=== PATIENT | female | born 1930 | race Caucasian/White ===

== ENCOUNTER 2016-09-27 10:27 | Outpatient (CLI) | payer MEDICARE, OTHER ==
[2015-04-26 11:31] VITALS: BP 129/69
== END 2016-09-27 10:30 ==
LOC: LAB 10:27
PROVIDERS: ATTEND Family Medicine
DX: Z51.81 Encounter for therapeutic drug level monitoring (principal); Z79.01 Long term (current) use of anticoagulants
CPT/HCPCS: 36415; 85610

== ENCOUNTER 2016-11-01 10:06 | Outpatient (CLI) | payer MEDICARE, OTHER ==
[2015-04-26 11:31] VITALS: BP 129/69
== END 2016-11-01 10:07 ==
LOC: LAB 10:06
PROVIDERS: ATTEND Family Medicine
DX: Z51.81 Encounter for therapeutic drug level monitoring (principal)
CPT/HCPCS: 36415; 85610

== ENCOUNTER 2016-11-22 10:25 | Outpatient (CLI) | payer MEDICARE, OTHER ==
[2015-04-26 11:31] VITALS: BP 129/69
== END 2016-11-22 10:26 ==
LOC: LAB 10:25
PROVIDERS: ATTEND Family Medicine
DX: Z51.81 Encounter for therapeutic drug level monitoring (principal); Z79.01 Long term (current) use of anticoagulants; I48.91 Unspecified atrial fibrillation
CPT/HCPCS: 36415; 85610

== ENCOUNTER 2016-11-28 15:47 | Outpatient (CLI) | payer MEDICARE, OTHER ==
[2015-04-26 11:31] VITALS: BP 129/69
[2016-11-28 16:01] LABS: BASOPHILS % 0.3 (0.0-1.5); EOSINOPHILS % 2.6 % (0.0-6.8); LYMPHOCYTES # 2.1 # k/uL (0.6-4.0); MONOCYTES # 0.4 # k/uL (0.0-0.9); MONOCYTES % 5.9 % (0.0-11.0); NEUTROPHILS # 3.5 # k/uL (1.4-7.7)
[2016-11-28 16:49] LABS: eGFR (African) > 60; eGFR (Non-African) > 60
== END 2016-11-28 15:50 ==
LOC: LAB 15:47
PROVIDERS: ATTEND Physician Assistant
DX: R42 Dizziness and giddiness (principal); D50.9 Iron deficiency anemia, unspecified
CPT/HCPCS: 36415; 80053; 82607; 83540; 85025

== ENCOUNTER 2017-01-01 09:06 | Outpatient (CLI) | payer MEDICARE, OTHER ==
[2015-04-26 11:31] VITALS: BP 129/69
== END 2017-01-01 09:07 ==
LOC: LAB 09:06
PROVIDERS: ATTEND Family Medicine
DX: E53.8 Deficiency of other specified B group vitamins (principal)
CPT/HCPCS: 82607; 85610

== ENCOUNTER 2017-02-07 10:24 | Outpatient (CLI) | payer MEDICARE, OTHER ==
[2015-04-26 11:31] VITALS: BP 129/69
== END 2017-02-07 10:25 ==
LOC: LAB 10:24
PROVIDERS: ATTEND Family Medicine
DX: Z51.81 Encounter for therapeutic drug level monitoring (principal)
CPT/HCPCS: 36415; 85610

== ENCOUNTER 2017-03-07 13:24 | Outpatient (CLI) | payer MEDICARE, OTHER ==
[2015-04-26 11:31] VITALS: BP 129/69
== END 2017-03-07 13:25 ==
LOC: LAB 13:24
PROVIDERS: ATTEND Family Medicine
DX: Z79.899 Other long term (current) drug therapy (principal)
CPT/HCPCS: 36415; 85610

== ENCOUNTER 2017-03-20 10:19 | Outpatient (CLI) | payer MEDICARE, OTHER ==
[2015-04-26 11:31] VITALS: BP 129/69
== END 2017-03-20 10:20 ==
LOC: LAB 10:19
PROVIDERS: ATTEND Family Medicine
DX: Z79.01 Long term (current) use of anticoagulants (principal)
CPT/HCPCS: 36415; 85610

== ENCOUNTER 2017-04-17 10:19 | Outpatient (CLI) | payer MEDICARE, OTHER ==
[2015-04-26 11:31] VITALS: BP 129/69
== END 2017-04-17 10:20 ==
LOC: LAB 10:19
PROVIDERS: ATTEND Family Medicine
DX: Z79.01 Long term (current) use of anticoagulants (principal)
CPT/HCPCS: 36415; 85610

== ENCOUNTER 2017-05-15 10:08 | Outpatient (CLI) | payer MEDICARE, OTHER ==
[2015-04-26 11:31] VITALS: BP 129/69
== END 2017-05-15 10:10 ==
LOC: LAB 10:08
PROVIDERS: ATTEND Family Medicine
DX: Z79.01 Long term (current) use of anticoagulants (principal)
CPT/HCPCS: 36415; 85610

== ENCOUNTER 2017-05-29 10:06 | Outpatient (CLI) | payer MEDICARE, OTHER ==
[2015-04-26 11:31] VITALS: BP 129/69
== END 2017-05-29 10:07 ==
LOC: LAB 10:06
PROVIDERS: ATTEND Family Medicine
DX: Z79.01 Long term (current) use of anticoagulants (principal)
CPT/HCPCS: 36415; 85610

== ENCOUNTER 2017-07-05 10:20 | Outpatient (CLI) | payer MEDICARE, OTHER ==
[2015-04-26 11:31] VITALS: BP 129/69
[2017-07-05 11:18] LABS: eGFR (African) > 60; eGFR (Non-African) > 60
== END 2017-07-05 10:21 ==
LOC: LAB 10:20
PROVIDERS: ATTEND Family Medicine
DX: E78.2 Mixed hyperlipidemia (principal); E53.8 Deficiency of other specified B group vitamins; Z51.81 Encounter for therapeutic drug level monitoring
CPT/HCPCS: 36415; 80053; 80061; 82607; 85610

== ENCOUNTER 2017-07-19 10:33 | Outpatient (CLI) | payer MEDICARE, OTHER ==
[2015-04-26 11:31] VITALS: BP 129/69
== END 2017-07-19 10:34 ==
LOC: LAB 10:33
PROVIDERS: ATTEND Family Medicine
DX: Z51.81 Encounter for therapeutic drug level monitoring (principal)
CPT/HCPCS: 36415; 85610

== ENCOUNTER 2017-07-30 10:11 | Outpatient (CLI) | payer MEDICARE, OTHER ==
[2015-04-26 11:31] VITALS: BP 129/69
== END 2017-07-30 10:12 ==
LOC: LAB 10:11
PROVIDERS: ATTEND Family Medicine
DX: Z51.81 Encounter for therapeutic drug level monitoring (principal)
CPT/HCPCS: 36415; 85610

== ENCOUNTER 2017-08-21 10:10 | Outpatient (CLI) | payer MEDICARE, OTHER ==
[2015-04-26 11:31] VITALS: BP 129/69
== END 2017-08-21 12:55 ==
LOC: LAB 10:10
PROVIDERS: ATTEND Family Medicine
DX: Z51.81 Encounter for therapeutic drug level monitoring (principal)
CPT/HCPCS: 36415; 85610

== ENCOUNTER 2017-09-19 10:31 | Outpatient (CLI) | payer MEDICARE, OTHER ==
[2015-04-26 11:31] VITALS: BP 129/69
== END 2017-09-19 10:33 ==
LOC: LAB 10:31
PROVIDERS: ATTEND Family Medicine
DX: Z51.81 Encounter for therapeutic drug level monitoring (principal)
CPT/HCPCS: 36415; 85610

== ENCOUNTER 2017-10-25 10:06 | Outpatient (CLI) | payer MEDICARE, OTHER ==
[2015-04-26 11:31] VITALS: BP 129/69
== END 2017-10-25 10:07 ==
LOC: LAB 10:06
PROVIDERS: ATTEND Family Medicine
DX: Z51.81 Encounter for therapeutic drug level monitoring (principal)
CPT/HCPCS: 36415; 85610

== ENCOUNTER 2017-11-21 10:17 | Outpatient (CLI) | payer MEDICARE, OTHER ==
[2015-04-26 11:31] VITALS: BP 129/69
== END 2017-11-21 10:30 ==
LOC: LAB 10:17
PROVIDERS: ATTEND Family Medicine
DX: Z51.81 Encounter for therapeutic drug level monitoring (principal)
CPT/HCPCS: 36415; 85610

== ENCOUNTER 2017-11-28 10:08 | Outpatient (CLI) | payer MEDICARE, OTHER ==
[2015-04-26 11:31] VITALS: BP 129/69
== END 2017-11-28 10:10 ==
LOC: LAB 10:08
PROVIDERS: ATTEND Family Medicine
DX: Z51.81 Encounter for therapeutic drug level monitoring (principal)
CPT/HCPCS: 36415; 85610

== ENCOUNTER 2017-12-05 10:19 | Outpatient (CLI) | payer MEDICARE, OTHER ==
[2015-04-26 11:31] VITALS: BP 129/69
== END 2017-12-05 10:20 ==
LOC: LAB 10:19
PROVIDERS: ATTEND Family Medicine
DX: Z51.81 Encounter for therapeutic drug level monitoring (principal)
CPT/HCPCS: 36415; 85610

== ENCOUNTER 2017-12-12 10:17 | Outpatient (CLI) | payer MEDICARE, OTHER ==
[2015-04-26 11:31] VITALS: BP 129/69
== END 2017-12-12 10:18 ==
LOC: LAB 10:17
PROVIDERS: ATTEND Family Medicine
DX: Z51.81 Encounter for therapeutic drug level monitoring (principal)
CPT/HCPCS: 36415; 85610

== ENCOUNTER 2018-02-11 11:10 | Outpatient (CLI) | payer MEDICARE, OTHER ==
[2015-04-26 11:31] VITALS: BP 129/69
[2018-02-11 11:28] LABS: MEAN CORPUSCULAR HEMOGLOBIN 28.2 pg (28.0-34.0); MEAN CORPUSCULAR VOLUME 96.3 fl (80.0-100.0)
== END 2018-02-11 11:11 ==
LOC: LAB 11:10
PROVIDERS: ATTEND Family Medicine
DX: D50.9 Iron deficiency anemia, unspecified (principal)
CPT/HCPCS: 36415; 85027

== ENCOUNTER 2018-02-18 10:19 | Outpatient (CLI) | payer MEDICARE, OTHER ==
[2015-04-26 11:31] VITALS: BP 129/69
[2018-02-18 10:34] LABS: MEAN CORPUSCULAR HEMOGLOBIN 28.4 pg (28.0-34.0)
== END 2018-02-18 10:20 ==
LOC: LAB 10:19
PROVIDERS: ATTEND Family Medicine
DX: D64.9 Anemia, unspecified (principal)
CPT/HCPCS: 36415; 85027

== ENCOUNTER 2018-02-26 10:39 | Outpatient (CLI) | payer MEDICARE, OTHER ==
[2015-04-26 11:31] VITALS: BP 129/69
[2018-02-26 13:11] LABS: BASOPHILS % 0.7 (0.0-1.5); EOSINOPHILS % 2.2 % (0.0-6.8); MEAN CORPUSCULAR HEMOGLOBIN 29.5 pg (28.0-34.0); MEAN CORPUSCULAR VOLUME 102.2 fl (80.0-100.0); NEUTROPHILS # 3.8 # k/uL (1.4-7.7)
[2018-02-26 19:31] LABS: SERUM IRON 157 ug/dL (37-145)
== END 2018-02-26 10:40 ==
LOC: LAB 10:39
PROVIDERS: ATTEND Family Medicine
DX: D50.9 Iron deficiency anemia, unspecified (principal)
CPT/HCPCS: 36415; 82728; 83540; 83550; 85025

== ENCOUNTER 2018-04-24 10:13 | Outpatient (CLI) | payer MEDICARE, OTHER ==
[2015-04-26 11:31] VITALS: BP 129/69
[2018-04-24 10:33] LABS: MEAN CORPUSCULAR HEMOGLOBIN 29.6 pg (28.0-34.0); MEAN CORPUSCULAR VOLUME 93.9 fl (80.0-100.0)
== END 2018-04-24 10:14 ==
LOC: LAB 10:13
PROVIDERS: ATTEND Family Medicine
DX: D64.9 Anemia, unspecified (principal)
CPT/HCPCS: 36415; 85027

== ENCOUNTER 2018-11-14 09:52 | Outpatient (CLI) | payer MEDICARE, OTHER ==
[2015-04-26 11:31] VITALS: BP 129/69
[2018-11-14 10:50] LABS: MEAN CORPUSCULAR HEMOGLOBIN 29.7 pg (28.0-34.0)
[2018-11-14 11:02] LABS: eGFR (Non-African) 37
--- NOTE | 2018-11-15 04:01 | Diagnostic Imaging Report ---
NIDA MUNROE [facility] [id number] [facility] [address] [id number] Report Submission Date: Nov 14, 2018 11:29:21 AM CHIEF SAFETY OFFICER Patient Study Name: BHAVANA REILLY Date: Nov 14, 2018 10:06:41 AM CHIEF SAFETY OFFICER Modality Type: DX Gender: F Description: L SPINE 2 OR 3 VIEWS : 31 Institution: [facility] Physician: NIDA MUNROE Exam: Lumbar spine. History: Chronic back pain. Primarily on the right side. AP, lateral and L5-S1 spot view the lumbar spine are submitted. No previous studies are available for comparison. 5 functional lumbar vertebra are identified. Diffuse osteopenia is noted. Dextroscoliosis of lumbar spine is noted. The vertebral body heights are adequate maintained. Mild retrolisthesis of T12 on L1 is noted. Disc space narrowing with endplate sclerosis and spurring is seen at all levels. Atherosclerotic plaque is seen in the abdominal aorta. Impression: Diffuse osteopenia. Extra scoliosis. Retrolisthesis of T12 on L1. Multilevel degenerative disc disease. Electronically signed on Nov 14, 2018 11:29:21 AM CHIEF SAFETY OFFICER by: Dylan ALEJANDRA
== END 2018-11-14 10:10 ==
LOC: LAB 09:52
PROVIDERS: ATTEND Family Medicine
DX: G89.29 Other chronic pain (principal); M54.5 Low back pain; E78.2 Mixed hyperlipidemia; D64.9 Anemia, unspecified; M85.88 Other specified disorders of bone density and structure, other site; M41.86 Other forms of scoliosis, lumbar region; M51.36 Other intervertebral disc degeneration, lumbar region
CPT/HCPCS: 36415; 72100; 80053; 80061; 85027

== ENCOUNTER 2019-03-26 13:09 | Outpatient (CLI) | payer MEDICARE, OTHER ==
[2015-04-26 11:31] VITALS: BP 129/69
--- NOTE | 2019-03-28 15:45 | CONSULTATION REPORT ---
DATE OF CONSULTATION: 03/26/2019 CHIEF COMPLAINT: Low back pain with radiation to the left lower extremity into the foot and into the left buttock. HISTORY OF PRESENT ILLNESS: Ms. Tiny Burroughs is an 88-year-old white female referred to me by Dr. Janie Ricketts. The patient has had complaint of pain for many years. She states that her pain has worsened in the past 8-9 weeks. The patient reports to me that she had gotten a nerve block done about 1 month ago and it has changed the character of her pain from referred into the left foot, now only referred into the left buttock area. The patient is not sure what injection she had (apparently it was done in [place], [place]; I believe at a radiology center). We will need to try and get the records regarding this procedure. At this time, the patient describes pain radiating from the lumbar region into the left buttock. It is described as constant, dull and achy. It is aggravated with prolonged sitting. It is improved with lying down. Past treatments have never included any surgery. She has had an injection done about 1 month ago, as mentioned above. The patient has had some physical therapy; she just started it yesterday. Her pain is rated at 7/10 in intensity on an average given day. Her current medications for pain only include [id number] Tylenol at this time. She does have imaging in the chart which reveals an L4-L5 and L5-S1 disc bulge but more significantly has facet arthropathy from the T12 level down through the L5-S1 level. PAST MEDICAL HISTORY: 1. GERD. 2. Hypertension. 3. Atrial fibrillation. 4. History of colon cancer. PAST SURGICAL HISTORY: 1. Sigmoid colon resection. 2. Right total knee replacement. 3. Appendectomy. 4. Cholecystectomy. 5. Hysterectomy. 6. Bladder sling surgery. ALLERGIES: Sulfa Contrast dye MEDICATIONS: As mentioned above. It should also be noted that the patient is also on Eliquis. SOCIAL HISTORY: Negative for tobacco, alcohol or any substance use. FAMILY HISTORY: Noncontributory. REVIEW OF SYSTEMS: The patient states her sleep/wake cycle is intact. She denies shortness of breath, chest pain, nausea, constipation or any urinary problems. She states she has had an 8 pound weight loss from her hypertension medication. She has no skin rashes or any other integument issues. The patient does wear glasses and otherwise has blurred vision. The patient denies any dizziness, headache or memory issues. PHYSICAL EXAMINATION: On exam, the patient is 5 feet 1 inch tall and weighs 132 pounds. The patient is awake and alert x3. Vital signs are stable. Heart is regular in rate and rhythm. Eyes PERRLA. Throat is clear. Trachea midline. Lungs have good excursion. No acute respiratory distress. Abdomen is soft and nontender. Motor strength is 5/5 upper and lower bilaterally. Sensory system is grossly intact. The patient does have minimal lumbosacral tenderness and mild left SI tenderness. The patient is noted to have arthritic changes in the joints of her hands. The patient otherwise has adequate lumbar flexion but does have significant tenderness and limitation with lumbar extension. IMAGING: As mentioned above. DIAGNOSES: 1. Lumbar spondylosis. 2. Lumbar disc displacement. 3. Lumbar spinal stenosis. PLAN AT THIS TIME: 1. We will need to try and get records regarding the patients previously mentioned nerve block 1 month ago. 2. I will start her on some meloxicam, Robaxin and gabapentin at 100 mg q.h.s. 3. We will get the patient set up for a lumbar medial branch block. This will require the patient to hold her Eliquis for a 3 day period of time. We will need to get permission regarding this from Dr. Ricketts. Ms. Burroguhs is a genuinely nice and pleasant woman and hopefully we can help attenuate her complaints of pain. I believe her current issues are more related to her spondylitic findings rather than the discogenic findings. I would again like to thank Dr. Ricketts for referral of this patient to us at this time. I look forward to seeing Ms. Burroughs in 2 weeks time for the above mentioned procedure. Sincerely, Luis Enrique Cardoza M.D. (dictated but not read) computer generated signature MN/pre cc: Janie Ricketts M.D. NOTE: Time spent with this patient today was in excess of 45 minutes. [facility]
== END 2019-03-26 13:35 ==
LOC: OUT 13:09
PROVIDERS: ATTEND Pain Medicine Interventional Pain Medicine
DX: M47.816 Spondylosis without myelopathy or radiculopathy, lumbar region (principal); M51.26 Other intervertebral disc displacement, lumbar region; M48.061 Spinal stenosis, lumbar region without neurogenic claudication
CPT/HCPCS: 99204; G0463

== ENCOUNTER 2019-04-09 12:49 | Outpatient (CLI) | payer MEDICARE, OTHER ==
[2015-04-26 11:31] VITALS: BP 129/69
[~2019-04-09 12:49] MED LIST: 0.9 % SODIUM CHLORIDE PF 10 ML VIAL IJ ONE; Lidocaine 1% 5ml 10 MG/ML VIAL ONE; methylPREDNISolone ACETATE 80 MG/ML VIAL IM ONE
--- NOTE | 2019-04-14 06:04 | Operative Note ---
PROCEDURE: Lumbar Medial Branch Block (bilateral L3-L4, L4-L5 and L5-S1 levels), #1 DATE OF PROCEDURE: 04/09/2019 CHIEF COMPLAINT: Low back pain. HISTORY OF PRESENT ILLNESS: Ms. Burroughs returns following her initial evaluation. At that point, we felt that the lumbar medial branch block would be an appropriate treatment modality for the patients pain complaints consistent with lumbar spondylosis and facet hypertrophy. Ms. Burroughs is accompanied by her son and her granddaughter, Екатерина, who is a nurse here at [facility] in [place], [place]. I have gone through the procedure in great detail with the patient and her family members. We discussed the benefits and risks and overall plan. They all agree and we will proceed with the procedure. PHYSICAL EXAM: On exam, the patient is awake and alert. Vital signs are stable. Heart is regular in rate and rhythm. Eyes PERRLA. Throat clear. Trachea midline. Lungs have good excursion. Abdomen is soft and nontender. The patient has distal lumbosacral tenderness and exacerbation of her pain with lumbar extension. PREPROCEDURE DIAGNOSES: 1. Lumbar spondylosis without myelopathy. 2. Lumbar facet hypertrophy. 3. Chronic low back pain. POSTPROCEDURE DIAGNOSES: 1. Lumbar spondylosis without myelopathy. 2. Lumbar facet hypertrophy. 3. Chronic low back pain. PLAN: We will proceed with the planned procedure as mentioned above. DESCRIPTION OF PROCEDURE: After informed and written consent were taken from the patient, the patient was brought to the Procedure Room and placed in the prone position. Time-out was taken with the patient and members in the Procedure Room. It was agreed that a lumbar medial branch block would be performed. The area for lumbar medial branch block was identified on the patients back. The area was prepped and draped in the usual sterile manner with ChloraPrep solution. The ChloraPrep solution was then placed on the lumbosacral region and towels were placed for draping. Using fluoroscopic guidance, the region for lumbar medial branch block was identified at the bilateral L5-S1 sacral ala as well as in the regions of the superior articulating process of the L3-L4 and L4-L5 joints bilaterally. Imaging was then taken in the oblique fashion to the left side to identify the correct position for the L3-L4 and L4-L5 medial branch blocks. Once these locations were identified, local anesthesia with 0.5% lidocaine was infiltrated at the bilateral L5-S1 level and on the left side of L3-L4 and L4-L5 levels. A 22-gauge 3.5-inch spinal needle was easily placed under fluoroscopic guidance for the L3-L4 and L4-L5 levels in the oblique fluoroscopic position. AP imaging was then taken at the L5-S1 level and the needles were placed at those levels. A solution containing 10 mL of 0.5% lidocaine and 80 mg of Depo-Medrol was easily infiltrated at these levels. Approximately 1.5 mL of this solution was infiltrated to the bilateral L5-S1 medial branches as well as 1.5 mL for the left L3-L4 and L4-L5 levels on the left side. All aspirations were negative. The procedure was then repeated for the 2 remaining levels on the right side at L3-L4 and L4-L5 with similar solution and similar aliquots of this solution. Following the procedure, all needles were removed. The ChloraPrep solution was cleansed and bandages were applied. The patient was brought to the Recovery Room and observed. The patient had 100% relief. The patient was, in fact, noted to be dancing following the procedure today. The patient appears to be doing much better and I believe her family members appreciate this as well. The patient was discharged in stable condition. The patients preprocedure pain level was 6-7/10. The patients postprocedure pain level was 0/10. POST-PROCEDURE INSTRUCTIONS: We will plan to repeat this procedure in the next 2-3 weeks time, depending on my scheduling at [facility] in [place], [place]. My scheduling will be moving to Sunday in the second week of April 2019. If the patient has another excellent response to diagnostic lumbar medial branch blocks, I believe that this patient will be an excellent candidate for lumbar radiofrequency ablation at these levels as well. We hope the best for Ms. Burroughs. Luis Enrique Cardoza M.D. (dictated but not read) computer generated signature MN/jesi JUSTYN
== END 2019-04-09 13:53 ==
LOC: OUT 12:49
PROVIDERS: ATTEND Pain Medicine Interventional Pain Medicine
DX: M47.816 Spondylosis without myelopathy or radiculopathy, lumbar region (principal); M53.86 Other specified dorsopathies, lumbar region; M54.5 Low back pain
CPT/HCPCS: 64493; 64494; 64495; 64635; 64636; J1040

== ENCOUNTER 2019-05-08 08:51 | Outpatient (CLI) | payer MEDICARE, OTHER ==
[2015-04-26 11:31] VITALS: BP 129/69
[2019-05-08 11:14] LABS: BASOPHILS % 0.6 % (0.0-1.5); NEUTROPHILS # 4.1 # k/uL (1.4-7.7)
[2019-05-08 11:33] LABS: eGFR (Non-African) 31
== END 2019-05-08 09:20 ==
LOC: OUT 08:51
PROVIDERS: ATTEND Nurse Practitioner Adult Health
DX: M47.16 Other spondylosis with myelopathy, lumbar region (principal); M46.96 Unspecified inflammatory spondylopathy, lumbar region
CPT/HCPCS: 36415; 80053; 85025; 93005; 99213; G0463

== ENCOUNTER 2019-05-13 07:19 | Day surgery (SDC) | payer MEDICARE, OTHER ==
[2015-04-26 11:31] VITALS: BP 129/69
[2019-05-13] MEDS ORDERED: LACTATED RINGERS 1,000 ML IV.SOLN IV ONE (08:48)
[2019-05-13] MEDS ORDERED: MIDAZOLAM HCL 2 MG/2 ML VIAL ONE (08:48)
[2019-05-13] MEDS ORDERED: LIDOCAINE HCL 1% PF 300MG/30ML VIAL ONE (08:48)
[2019-05-13] MEDS ORDERED: fentaNYL CITRATE/PF 100 MCG/2 ML INJ. ONE (08:48)
[2019-05-13] MEDS ORDERED: methylPREDNISolone ACETATE 80 MG/ML VIAL IM ONE (08:48)
[2019-05-13] MEDS ORDERED: 0.9 % SODIUM CHLORIDE PF 10 ML VIAL IJ ONE (08:48)
--- NOTE | 2019-05-19 11:08 | Operative Note ---
DATE OF PROCEDURE: 05/13/2019 PROCEDURE: Lumbar Radiofrequency Ablation (bilateral L3-L4, L4-L5 and L5-S1 medial branch levels) LOCATION OF PROCEDURE: [facility]; [place], [place] SURGEON: Luis Enrique Cardoza M.D. ASSISTANTS: None ANESTHESIA: MAC CHIEF COMPLAINT: Lower back pain. HISTORY OF PRESENT ILLNESS: Ms. Burroughs returns for planned radiofrequency ablation after 2 positive diagnostic lumbar medial branch blocks. The patient states to me that the last block had helped her for only a few days following the procedure, whereas the first procedure had given her about 2 weeks of relief. She returns with a level of pain preprocedure of about 3-4/10 in intensity. I spoke with the patient extensively about the procedure again today, and spoke with the patients son as well as the patients granddaughter, 1 of our nurses here at [facility] in [place], [place]. The patients demographics have been reviewed. The preprocedure paperwork has been reviewed as well as signed informed consent. The patient's condition and proposed procedure, risks and alternative interventions were discussed with the patient, including the risk of bleeding, infection and nerve damage, the potential for efficacy, non-efficacy and increased pain. The patient's questions were answered. The patient voiced understanding and desire to proceed with the procedure. The consent form was signed. PHYSICAL EXAM: On exam, the patient is awake and alert. Vital signs are stable. Heart is regular in rate and rhythm. Eyes PERRLA. Throat clear. Trachea midline. Lungs have good excursion. Abdomen is soft and nontender. The patient has mild distal lumbosacral tenderness. No scars are noted. PREOPERATIVE DIAGNOSES: 1. Lumbar spondylosis without myelopathy. 2. Lumbar facet arthropathy. 3. Chronic low back pain. POSTOPERATIVE DIAGNOSES: 1. Lumbar spondylosis without myelopathy. 2. Lumbar facet arthropathy. 3. Chronic low back pain. PLAN: We will proceed with the planned procedure as mentioned above. DESCRIPTION OF PROCEDURE: Preprocedure the patients name and date of were verified, confirmed planned procedure with patient, reviewed discharge instructions and a procedure consent was signed. IV was started per Anesthesia staff. Monitors were applied by Anesthesia staff. The patient was administered IV awake sedation/MAC to promote comfort per Anesthesia. The patient was placed in a prone position. The skin overlying the injection sites was prepped with ChloraPrep and draped in a sterile fashion. A procedural pause was performed verifying the correct patient, medical record number, allergies and surgical site immediately prior to starting the procedure. The target injection sites were identified with fluoroscopy. The skin overlying each identified injection site was anesthetized using 3 mL of 0.5% lidocaine MPF with a 25-gauge 1 inch needle. An 18-gauge cannula electrode needle was then advanced under fluoroscopic guidance through the respective skin wheal parallel to the x-ray beam utilizing a bullseye approach to the nerves corresponding to each selected facet joint. Corresponding nerves to cauterize involved the innervation supplying each facet joint from the descending medial branch of the dorsal ramus from the next higher level facet joint and from the ascending medial branch of the dorsal ramus at the same level (for L5-S1 the ascending branch of the L5 dorsal ramus). Nerves to cauterize corresponded to the facet joints as follows: bilateral L3-L4, L4-L5 and L5-S1. To reach each lumbar facet joint median branch nerve from L1-L2 to L4-L5 the cannula needle was advanced to the periosteum medial aspect of the transverse process. If the L5-S1 joint was targeted, this corresponded to placing one cannula needle probe on the lateral aspect of the superior articulating process of the facet joint 1 cm above the junction with the sacral ala; a lateral view confirmed correct needle placement. A lateral image was obtained to confirm needle depth. Once the cannula electrode needle was placed, safe positioning was confirmed with motor stimulation at 2 Hz demonstrating multifidus muscle fasciculations but no motor stimulation in the lower extremities. Then 1.5 mL lidocaine 0.5% MPF mixed with steroid was injected through the cannula at each site; total dose of Depo-Medrol 80 mg. The needle tip curve was pointed medially. All needle tip curves were oriented with the concavity facing the periosteum. Then radiofrequency ablation was provided for 90 seconds at 80 degrees. The probes were then removed. The patient had excellent pain relief with no motor weakness in either lower extremity. The skin was washed off and dried. Dressings were applied to injection sites. It should be noted that motor testing was performed and was negative following placement of the needles. The radiofrequency ablation was performed at 80 degrees for 90 seconds with Rafter needles. No rotation of the needle or secondary burn needed to be performed. The procedure was completed without complication and was tolerated well. The patient was monitored during and following the procedure. The patient was then brought to the Recovery Room for further evaluation. The patient was discharged home in stable condition with no untoward effects. SPECIMENS: None ESTIMATED BLOOD LOSS: Less than 1 cc OPERATIVE COMPLICATIONS: None The patients preprocedure pain level was 3-4/10. The patients postprocedure pain level was 0/10. POST-PROCEDURE INSTRUCTIONS: Ms. Burroughs will followup with me here in [place], [place] in 2 weeks time for a routine followup visit. We hope the best for Ms. Burroughs. Luis Enrique Cardoza M.D. ANGEL/jesi JUSTYN
== END 2019-05-13 10:15 | disposition home or self-care (01) ==
LOC: OPSURG 07:19
PROVIDERS: ATTEND Pain Medicine Interventional Pain Medicine
DX: M47.816 Spondylosis without myelopathy or radiculopathy, lumbar region (principal); M54.5 Low back pain
CPT/HCPCS: 64635; 64636; J1040; J2001; J2250; J3010; J7120

== ENCOUNTER 2019-05-28 19:08 | Emergency (ER) | payer MEDICARE, OTHER ==
--- NOTE | 2019-05-28 21:39 | ED Physician Documentation ---
Low Back Pain - HISTORIAN Historian: patient - HPI Stated Complaint: Chronic back pain, procedure 2 weeks ago on Sunday by Ortho here Chief Complaint: Low Back Pain/ Injury History: history of chronic pain: Onset: days ago Duration: continues in ED Worsened By:: nothing Relieved By: nothing Further Comments: yes (89 year old female patient present with left paraspinous and left lumbar back pain. Patient is status post ablation for back pain [address] Luke at [facility]. Patient reports initial pain relief; but states pain has returned radiating into left buttock and down to the top of her left foot. She is using tylenol at home for the pain, but report no relief tonight. Rates pain 8/10. Denies loss of bowel or bladder.) - ROS CONST: no problems CVS/RESP: none EYES/ENT: none MS/SKIN/LYMPH: back pain Neuro/Psych: none GI/: denies: abdominal pain, black stools - PAST HX Past History: back pain Other History: arrhythmias ( a fib), hypertension, other (GERD, HLD, Afib colon CA, HTN) Allergies/Adverse Reactions: Allergies Allergy/AdvReac Type Severity Reaction Status Date / Time Sulfa (Sulfonamide Allergy Rash Verified 05/28/19 19:45 Antibiotics) IV contrast dye Allergy Intermediate Rash Uncoded 05/28/19 19:45 - SOCIAL HX Smoking History: non-smoker - FAMILY HX Family History: denies: none - VITAL SIGNS Vital Signs: Vital Signs Temp Pulse Resp BP Pulse Ox 97.8 F 74 18 153/57 05/28/19 19:08 05/28/19 19:08 05/28/19 19:08 05/28/19 19:08 - REVIEWED ASSESSMENTS Nursing Assessment Reviewed: Yes Vitals Reviewed: Yes Progress - Progress Progress: Patient ambulates with no complaint of pain; gait steady, no limp. OR and pre-op records reviewed as well as Dr Ricketts's notes. Patient is on eliquis and meloxicam. Will not add steriod or additional NSAID at this time. She is scheduled to return to spine clinic in 2 weeks. Referral completed for earlier appointment. Will medicate with steroid IM and muscle relaxer in ER. DC home with PRN ultram. Encourage patient to try lidoderm patches. ED Results Lab/Radiology - Orders Orders: ED Orders Category Date Time Status Orphenadrine Citrate [Norflex] Med 05/28/19 20:47 Discontinued 60 mg IM NOW ONE methylPREDNISolone ACETATE [DEPO-Medrol] Med 05/28/19 20:47 Discontinued 80 mg IM NOW ONE oxyCODONE HCL/ACETAMINOPHEN [Percocet 5-325] Med 05/28/19 21:28 Discontinued 2 each PO NOW ONE Low Back Pain/Injury - Physical Exam General Appearance: mild distress EENT: eye inspection normal, STACY Neck: non-tender, painless ROM Resp/CVS: chest non-tender, breath sounds nml Abdomen: non-tender, no organomegaly, no pulsatile mass Back: muscle spasm, other (tenderness in left paraspinous muscles at L4-S1) Straight Leg Raising: Negative Left, Negative Right Neuro/Psych: oriented x3, motor nml, sensation nml, bilat. 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 A prescription for pain medication has been provided to use until your next appointment. Condition: Stable Disposition: 01 HOME, SELF-CARE Decision to Admit: NO Decision Time: 21:38
[2019-05-28] MEDS: ORPHENADRINE CITRATE 60 MG/2 ML ML IM ONE (21:40)
[2019-05-28] MEDS: oxyCODONE/ACETAMINOPHEN 5/325 TABLET PO ONE (21:40)
[2019-05-28] MEDS: methylPREDNISolone ACETATE 80 MG/ML VIAL IM ONE (21:40)
[2019-05-29 01:39] VITALS: BP 148/68
== END 2019-05-28 21:58 | disposition home or self-care (01) ==
LOC: ED 19:08
DX: M54.5 Low back pain (principal); G89.29 Other chronic pain
CPT/HCPCS: 96372; 99282; 99284; J1040; A9270-GY; J2360

== ENCOUNTER 2019-07-08 11:06 | Inpatient (IN) | payer MEDICARE, OTHER ==
--- NOTE | 2019-07-08 11:23 | ED Physician Documentation ---
General Adult - HISTORIAN Historian: patient, other (son) - HPI Stated Complaint: weakness Chief Complaint: General Adult Additional Information: Patient presents to ED with intermittent weakness over the past 2 weeks. Patient states today she woke up feeling weak. She has had chronic back pain for the past 5 months and thought the pain was causing the weakness, however, this morning she states, "I just wasnt feeling right". Upon arrival patient was in afib with RVR, 146 bpm per EKG. Patient denies chest pain, shortness of breath, or lower extremity swelling. Patient has a history of afib and is currently on metoprolol and Eliquis. Onset: days ago (14) Timing: still present Severity: moderate - ROS CONST: denies: fever EYES/ENT: none CVS/RESP: denies: chest pain, shortness of breath GI/: denies: vomiting, nausea MS/SKIN/LYMPH: back pain NEURO/PSYCH: denies: headache, dizziness - PAST HX Past History: A-Fib Other History: none Surgeries/Procedures: none Allergies/Adverse Reactions: Allergies Allergy/AdvReac Type Severity Reaction Status Date / Time Iodinated Contrast Media Allergy Intermediate Rash Verified 07/08/19 13:16 Sulfa (Sulfonamide Allergy Rash Verified 07/08/19 11:50 Antibiotics) Home Medications: Ambulatory Orders Medication Instructions Recorded Gabapentin 100 mg PO TID 07/08/19 - SOCIAL HX Smoking History: non-smoker Alcohol Use: none Drug Use: none - FAMILY HX Family History: No - VITAL SIGNS Vital Signs: Vital Signs Temp Pulse Resp BP Pulse Ox 148/68 05/29/19 01:35 - REVIEWED ASSESSMENTS Nursing Assessment Reviewed: Yes Vitals Reviewed: Yes Progress - Progress Progress: [address] Ricketts for admission. She will accept patient for acute admission. - EKG/XRAY/CT Comments: afib with RVR ED Results Lab/Radiology - Radiology Radiology Impressions: Report Submission Date: Jul 08, 2019 12:30:29 PM CDT Patient Study Name: BHAVANA REILLY Date: Jul 08, 2019 11:29:42 AM CDT Modality Type: DX Gender: F Description: CHEST 2VIEW : 32 Institution: [facility] Physician: RANDOLPH PALENCIA PA and lateral chest History: Atrial fibrillation PA and lateral chest dated July 08, 2019 demonstrates aortic atherosclerosis. Otherwise, the cardiomediastinal silhouette is normal. Lungs are clear. Pulmonary vascularity is normal. There is mild biapical pleural thickening. Impression: No active disease. Electronically signed on Jul 08, 2019 12:30:29 PM CDT by: Chioma Davalos General Adult Physical Exam - PHYSICAL EXAM GENERAL APPEARANCE: no distress EENT: STACY NECK: supple RESPIRATORY: no resp distress, chest non-tender, breath sounds normal CVS: irregularly irregular rhy, tachycardia ABDOMEN: soft, non-tender BACK: normal inspection, no CVA tenderness SKIN: warm/dry EXTREMITIES: non-tender, normal range of motion, no evidence of injury NEURO: oriented X3, mood/affect nml Discharge Clincal Impression: Atrial fibrillation with rapid ventricular response Condition: Stable Disposition: ADMITTED INPATIENT Decision to Admit: [id number] Date of Decison to Admit: 07/08/19 Decision Time: 12:40
[2019-07-08] MEDS ORDERED: dilTIAZem HCL 25 MG/5 ML VIAL IVP ONE (11:30)
[2019-07-08] MEDS ORDERED: 0.9 % SODIUM CHLORIDE 100 ML IV ONE (11:30)
[2019-07-08 11:33] LABS: BASOPHILS % 0.6 % (0.0-1.5); NEUTROPHILS # 8.3 # k/uL (1.4-7.7)
[2019-07-08] MEDS ORDERED: dilTIAZem HCL 125 MG in 0.9 % SODIUM CHLORIDE 100 ML IV ONE (11:36)
[2019-07-08 11:46] LABS: eGFR (Non-African) 37
[2019-07-08] MEDS ORDERED: POTASSIUM CHLORIDE 20 MEQ TABLET.ER PO ONE (12:21)
--- NOTE | 2019-07-08 12:35 | Diagnostic Imaging Report ---
PATIENT MR#: [id number] PATIENT PATIENT NAME: BHAVANA REILLY DATE OF : 1930 REFERRING PHYSICIAN: Elle Padilla EXAM DATE: 07/08/2019 ACCESSION NUMBER: [id number] EXAM DESCRIPTION: CHEST 2VIEW PA and lateral chest History: Atrial fibrillation PA and lateral chest dated July 08, 2019 demonstrates aortic atherosclerosis. Otherwise, the card iomediastinal silhouette is normal. Lungs are clear. Pulmonary vascularity is normal. There is mild biapical ple ural thickening. Impression: No active disease. Read by: Dr. Chioma Davalos Transcribed by: Transcribed Date: Electronically signed by: Dr. Chioma Davalos Date signed: 07/08/2019 12:33:49 PM
[2019-07-08] MEDS ORDERED: DICYCLOMINE HCL 20 MG TABLET PO PRN (13:00)
[2019-07-08] MEDS ORDERED: MORPHINE SULFATE 2 MG/ML VIAL IV PRN (13:01)
--- NOTE | 2019-07-08 13:03 | History and Physical Report ---
History of Present Illnes - History of Present Illness Reason for Visit: Weakness History of Present Illness: Patient presented to the ER today feeling weak. Hasn't been eating or drinking much due to chronic back pain that continues to get worse. She had a steroid injection with Dr. Mandujano last week and put on NOrco 10/325 tid. Nothing is helping the pain. His staff told her today to wait until it's been 7 days. She came to the ER due to not feeling well. Found to have RVR with her Afib with rates 140's. She was given cardizem 10 mg IVP and slowed to 80. Within 30 min it was back up. She was started on a cardizem drip and will be admitted for treatment. She has not taken her BP meds of metoprolol and lisinopril this morning. She has a h/o of Afib with normal echo in 2016. Takes lopressor and eliquis. Denied CP or SOB. - Past Medical History Cardiac: AFIB, CHF (Echo 2016 EF 60% - mild diastolic dysfunction; normal atria), HTN, Hyperlipidemia ECONOMICS CONSULTANT: Peripheral neuropathy Gastrointestinal: GERD Heme/Onc: Anemia NOS, Cancer (Colon Cancer 1978 - "no treatment"; Uterine cancer) Hepatobiliary: Other (B12 deficiency) Musculoskeletal: Chronic low back pain - Past Surgical History Past Surgical History: Appendectomy, Cholecystectomy, Hysterectomy, Total Knee Replacement (R), Other (colectomy 1978) - Past Social History Smoke: No Alcohol: None Drugs: None Lives: With Family (son lives in basement) - Health Maintenance Health Maintenance: Cholesterol, Influenza Vaccine, Pneumococcal Vaccine, Colonoscopy, DEXA Influenza Vaccine: Current for this Influenza Season Pneumonia Vaccine: Yes Resuscitation Status: Resusciation Status Resuscitation Status Full Code Review of Systems - Review of Systems Constitutional: Weakness. negative: Fever Eyes: negative: pain ENT: negative: Ear Discharge, Nose Discharge, Nose Congestion, Throat Pain Respiratory: negative: Cough, Shortness of Breath Cardiovascular: negative: Chest Pain, Palpitations, Orthopnea Gastrointestinal: Nausea. negative: Vomiting, Abdominal Pain, Diarrhea, Constipation Genitourinary: negative: Dysuria, Frequency Musculoskeletal: Back Pain Skin: negative: Rash Neurological: Weakness - Medications/Allergies Allergies/Adverse Reactions: Allergies Allergy/AdvReac Type Severity Reaction Status Date / Time Iodinated Contrast Media Allergy Intermediate Rash Verified 07/08/19 13:16 Sulfa (Sulfonamide Allergy Rash Verified 07/08/19 11:50 Antibiotics) Home Medications: Home Medications Gabapentin 100 mg PO TID 07/08/19 Current Inpatient Medications: Current Inpatient Medications Apixaban (Eliquis) 5 mg PO BID [facility] Stop: 08/07/19 20:59 Dicyclomine HCl (Bentyl) 20 mg PO TID PRN PRN Reason: Abdominal Pain Stop: 08/07/19 12:59 Gabapentin (Neurontin) 100 mg PO TID [facility] Stop: 08/07/19 12:59 Diltiazem HCl 125 mg/ Sodium (Chloride) 125 mls @ 10 mls/hr IV NOW ONE; Protocol Stop: 07/09/19 00:05 Last Admin: 07/08/19 11:53 Dose: 10 mls/hr, 10 mls/hr Miscellaneous (Esomeprazole Magnesium [Esomeprazole Magnesium]) 40 mg PO DAILY [facility] Stop: 08/08/19 08:59 Miscellaneous (Ferrous Sulfate [Ferrous Sulfate]) 325 mg PO BID [facility] Stop: 08/07/19 20:59 Morphine Sulfate () 2 mg IV Q4H PRN PRN Reason: Severe Pain (Score 8-10) Stop: 08/07/19 13:00 Exam - Exam Vital Signs: Vital Signs (72 hours) 07/08/19 11:19 Temperature 95.8 F L Pulse Rate [ 156 H Pulse ox] Respiratory 20 Rate Blood Pressure 122/75 [Left Arm] O2 Sat by Pulse 98 Oximetry General: Alert, Oriented to Person, Oriented to Place, Oriented to Time, Cooperative, No acute distress HEENT: Atraumatic, PERRLA, EOMI, Mouth Mucous membr. moist/Bellamy Neck: Normal Range of Motion Lungs: Clear to auscultation, Normal air movement, Speaks full Sentences Cardiovascular: Irregularly Irregular Abdomen: Normal bowel sounds, Soft, No tenderness Integumentary: Normal Extremities: No edema Neurological: Generalized Weakness Psych/Mental Status: Mental status NL, Mood NL, Appropriate Affect, Intact Judgment - Laboratory Results Laboratory Results: Laboratory Results 07/08/19 07/08/19 07/08/19 11:31 11:31 11:31 WBC 12.20 H RBC 4.08 Hgb 12.6 Hct 39.9 MCV 98.0 MCH 31.0 MCHC 31.7 RDW 12.3 Plt Count 469 H Neut % (Auto) 67.9 Lymph % (Auto) 18.5 [place] % (Auto) 10.4 Eos % (Auto) 2.6 Baso % (Auto) 0.6 Neut # (Auto) 8.3 H Lymph # (Auto) 2.3 [place] # (Auto) 1.3 H Eos # (Auto) 0.3 Baso # (Auto) 0.1 Sodium 138 Potassium 3.3 L Chloride 101 Carbon Dioxide 24 Anion Gap 16.3 BUN 19 H Creatinine 1.42 H Est GFR ( Amer) > 60 Est GFR (Non-Af Amer) 37 L Glucose 132 H Calcium 9.9 Total Bilirubin 0.3 AST 29 ALT 13 Alkaline Phosphatase 79 Troponin I < 0.012 L NT-Pro-B Natriuret Pep 1216.0 H Total Protein 7.1 Albumin 4.3 TSH 1.040 Free T4 Direct 1.10 Assessment/Plan - Assessment/Plan (1) HTN (hypertension) Status: Chronic Current Visit: Yes Qualifiers: Hypertension type: essential hypertension Qualified Code(s): I10 - Essential (primary) hypertension Plan: Will hold ACEI and BBlocker at this time as her BP is soft on the diltiazem drip. May need to change to cardizem for rate control - wonder if BBlocker making her more fatigued. (2) Diastolic dysfunction Status: Chronic Current Visit: Yes Plan: Hold IVF for now as BNP a little up though doesn't appear fluid overloaded. (3) Chronic anemia Status: Chronic Current Visit: No (4) Atrial fibrillation with rapid ventricular response Status: Acute Current Visit: Yes Plan: Continue dilitiazem drip. Consider changing to diltiazem instead of metoprolol. May need to give digoxin vs. amiodarone if BP soft. (5) Chronic low back pain Status: Chronic Current Visit: Yes Qualifiers: Back pain laterality: left Sciatica presence: with sciatica Sciatica laterality: sciatica of left side Qualified Code(s): M54.42 - Lumbago with sciatica, left side; G89.29 - Other chronic pain Plan: Will give IV morphine to try to get some relief. Also will try percocet rather than norco while she is here. Consider fentanyl patch. VTE Assessment - RISK FACTOR SCORE VTE RISK FACTOR SCORES: AGE OVER 60 YEARS - RISK VTE LOW RISK: SCORE OF 1 OR LESS (RISK PROXIMAL DVT 0.4%) NO PROPHYLAXIS NEEDED
[2019-07-08 13:34] VITALS: BMI 23.9
[2019-07-08] MEDS: oxyCODONE/ACETAMINOPHEN 5/325 TABLET PO PRN ×2 (13:59→18:16)
[2019-07-08] MEDS: GABAPENTIN 100 MG CAPSULE PO SCH ×2 (13:59→18:14)
[2019-07-08] MEDS: dilTIAZem HCL 30 MG TABLET PO SCH ×2 (16:50→20:36)
[2019-07-08] MEDS: 0.9 % SODIUM CHLORIDE 1,000 ML IV SCH (16:51)
[2019-07-08] MEDS: FERROUS SULFATE 325 MG TABLET PO SCH (20:36)
[2019-07-08] MEDS: APIXABAN 5 MG TABLET PO SCH (20:36)
[2019-07-09] MEDS: oxyCODONE/ACETAMINOPHEN 5/325 TABLET PO PRN (03:23)
[2019-07-09] MEDS: 0.9 % SODIUM CHLORIDE 1,000 ML IV SCH ×2 (05:23→12:56)
[2019-07-09] MEDS: PANTOPRAZOLE SODIUM 40 MG TABLET.DR PO SCH (06:18)
[2019-07-09 06:54] LABS: eGFR (Non-African) > 60
[2019-07-09 07:09] LABS: BASOPHILS % 0.4 % (0.0-1.5); NEUTROPHILS # 4.2 # k/uL (1.4-7.7)
--- NOTE | 2019-07-09 08:01 | Inpatient Progress Note ---
Subjective - Required Recertification Statement I anticipate X number of days because-include discharge plan: 1 - Review of Systems Subjective: Patient feeling better this am. Even has a bit of an appetite. No CP or SOB. Currently in NSR with Rate 70-80. Cardizem drip stopped last night around 1999. Percocet worked better for pain. Objective - Exam Vitals and I&O: Vital Signs Temp 97.0 F L 07/09/19 05:31 Pulse 68 07/09/19 05:31 Resp 18 07/09/19 05:31 BP 162/72 07/09/19 05:31 Pulse Ox 96 07/09/19 05:31 Intake & Output 07/08/19 07/08/19 07/09/19 11:59 23:59 11:59 Intake Total 190 Balance 190 Weight 58.967 kg 59.421 kg 60.781 kg Intake: Oral 190 Other: Voiding Method Toilet Toilet # Voids 2 # Bowel Movements 0 0 General: Alert, Oriented to Person, Oriented to Place, Oriented to Time, Cooperative, No acute distress Lungs: Clear to auscultation, Normal air movement, Speaks full Sentences Cardiovascular: Regular rate - Results Results: Laboratory Results WBC 6.00 K/ul (4.00-12.00) 07/09/19 06:00 RBC 3.53 M/ul (3.90-5.20) L 07/09/19 06:00 Hgb 11.2 g/dL (11.5-16.0) L 07/09/19 06:00 Hct 34.1 % (34.5-46.5) L 07/09/19 06:00 MCV 97.0 fl (80.0-100.0) 07/09/19 06:00 MCH 31.8 pg (28.0-34.0) 07/09/19 06:00 MCHC 32.9 g/dL (30.0-36.0) 07/09/19 06:00 RDW 12.0 % (11.3-14.3) 07/09/19 06:00 Plt Count 328 K/mm3 (130-400) 07/09/19 06:00 Neut % (Auto) 68.9 % (39.0-79.0) 07/09/19 06:00 Lymph % (Auto) 21.9 % (16.0-50.0) 07/09/19 06:00 [place] % (Auto) 6.2 % (0.0-11.0) 07/09/19 06:00 Eos % (Auto) 2.6 % (0.0-6.8) 07/09/19 06:00 Baso % (Auto) 0.4 % (0.0-1.5) 07/09/19 06:00 Neut # (Auto) 4.2 # k/uL (1.4-7.7) 07/09/19 06:00 Lymph # (Auto) 1.3 # k/uL (0.6-4.0) 07/09/19 06:00 [place] # (Auto) 0.4 # k/uL (0.0-0.9) 07/09/19 06:00 Eos # (Auto) 0.2 # k/uL (0.0-0.6) 07/09/19 06:00 Baso # (Auto) 0.0 # k/uL (0.0-0.5) 07/09/19 06:00 Sodium 138 mmol/L (137-145) 07/09/19 06:00 Potassium 4.3 mmol/L (3.5-5.1) 07/09/19 06:00 Chloride 105 mmol/L (98-107) 07/09/19 06:00 Carbon Dioxide 25 mmol/L (22-30) 07/09/19 06:00 Anion Gap 12.3 07/09/19 06:00 BUN 14 mg/dL (7-17) 07/09/19 06:00 Creatinine 1.12 mg/dL (0.52-1.04) H 07/09/19 06:00 Estimated Creat Clear 39 07/09/19 06:00 Est GFR ( Amer) > 60 (60-) 07/09/19 06:00 Est GFR (Non-Af Amer) > 60 (60-) 07/09/19 06:00 Glucose 105 mg/dL (74-106) 07/09/19 06:00 Calcium 9.5 mg/dL (8.4-10.2) 07/09/19 06:00 Total Bilirubin 0.3 mg/dL (0.2-1.3) 07/08/19 11:31 AST 29 U/L (15-46) 07/08/19 11:31 ALT 13 U/L (0-35) 07/08/19 11:31 Alkaline Phosphatase 79 U/L (38-126) 07/08/19 11:31 Troponin I < 0.012 ng/mL (0.012-0.034) L 07/08/19 11:31 NT-Pro-B Natriuret Pep 1216.0 pg/mL (15.0-450.0) H 07/08/19 11:31 Total Protein 7.1 g/dL (6.3-8.2) 07/08/19 11:31 Albumin 4.3 g/dL (3.5-5.0) 07/08/19 11:31 TSH 1.040 mIU/l (0.465-4.685) 07/08/19 11:31 Free T4 Direct 1.10 ng/dL (0.78-2.19) 07/08/19 11:31 Assessment/Plan - Assessment/Plan (1) HTN (hypertension) Status: Chronic Current Visit: Yes Qualifiers: Hypertension type: essential hypertension Qualified Code(s): I10 - Essential (primary) hypertension (2) Diastolic dysfunction Status: Chronic Current Visit: Yes (3) Chronic anemia Status: Chronic Current Visit: No (4) Atrial fibrillation with rapid ventricular response Status: Acute Current Visit: Yes Plan: Patient now in NSR with normal pulse. I discussed case with her learning strategist, Dr. Harrell -- decided to avoid po cardizem due to EF 25% for risk of worsening heart failure. Will restart metoprolol but at a lower dose today due to HR. Watch today and plan to d/c tomorrow. (5) Chronic low back pain Status: Chronic Current Visit: Yes Qualifiers: Back pain laterality: left Sciatica presence: with sciatica Sciatica laterality: sciatica of left side Qualified Code(s): M54.42 - Lumbago with sciatica, left side; G89.29 - Other chronic pain Plan: Will increase percocet to 7.5 to see if we can get better pain control.
[2019-07-09] MEDS ORDERED: METOPROLOL TARTRATE 25 MG TABLET PO SCH (09:00)
[2019-07-09] MEDS: GABAPENTIN 100 MG CAPSULE PO SCH ×3 (09:08→17:24)
[2019-07-09] MEDS: APIXABAN 5 MG TABLET PO SCH ×2 (09:08→20:13)
[2019-07-09] MEDS: FERROUS SULFATE 325 MG TABLET PO SCH ×2 (09:09→20:13)
[2019-07-09] MEDS: METOPROLOL TARTRATE 25 MG TABLET PO SCH ×2 (09:10→20:12)
[2019-07-10] MEDS: PANTOPRAZOLE SODIUM 40 MG TABLET.DR PO SCH (05:07)
--- NOTE | 2019-07-10 08:00 | Discharge Summary ---
Discharge Summary - Discharge [facility] Admission Date: 07/08/19 Discharge Date: 07/10/19 Discharge To: Home History of Present Illness: Patient presented to the ER today feeling weak. Hasn't been eating or drinking much due to chronic back pain that continues to get worse. She had a steroid injection with Dr. Mandujano last week and put on NOrco 10/325 tid. Nothing is helping the pain. His staff told her today to wait until it's been 7 days. She came to the ER due to not feeling well. Found to have RVR with her Afib with rates 140's. She was given cardizem 10 mg IVP and slowed to 80. Within 30 min it was back up. She was started on a cardizem drip and will be admitted for treatment. She has not taken her BP meds of metoprolol and lisinopril this morning. She has a h/o of Afib with normal echo in 2016. Takes lopressor and eliquis. Denied CP or SOB. Condition at Discharge: Stable Home Medications: Ambulatory Orders Medication Instructions Recorded Gabapentin 100 mg PO TID 07/08/19 oxyCODONE HCL/ACETAMINOPHEN 1 each PO Q6 PRN #120 tablet 07/10/19 [Percocet 7.5-325] Consultations this Visit: None Procedures this Visit: None Allergies/Adverse Reactions: Allergies Allergy/AdvReac Type Severity Reaction Status Date / Time Iodinated Contrast Media Allergy Intermediate Rash Verified 07/08/19 13:16 Sulfa (Sulfonamide Allergy Rash Verified 07/08/19 11:50 Antibiotics) Patient Problems: Current Active Problems Problem Status Onset Atrial fibrillation with rapid ventricular response Acute Chronic low back pain Chronic Diastolic dysfunction Chronic HTN (hypertension) Chronic Discharge Summary: Patient was admitted with afib with RVR. Rate control was achieved with cardizem drip up to 10. It was weaned down and patient given oral cardizem. Due to concern over CCB causing worsening CHF she was put back on metoprolol. Rate stayed 60-70 and was in NSR. BP 140's. She felt much better. We trialed her on percocet 7.5 and she reported better control of back pain. Will continue that on discharge instead of norco. She was discharged home in good condition on home dose of lopressor. Hospital Course: Discharge Dx. Afib with RVR. Chronic back pain. Chronic ane noe. HTN
[2019-07-10] MEDS: FERROUS SULFATE 325 MG TABLET PO SCH (08:28)
[2019-07-10] MEDS: GABAPENTIN 100 MG CAPSULE PO SCH (08:28)
[2019-07-10] MEDS: APIXABAN 5 MG TABLET PO SCH (08:28)
[2019-07-10] MEDS: METOPROLOL TARTRATE 25 MG TABLET PO SCH (08:29)
[2019-07-10 08:51] VITALS: BP 150/68
== END 2019-07-10 10:03 | disposition home or self-care (01) | DRG 309 ==
LOC: ED 11:06 → SOUTH 12:45
PROVIDERS: ADMIT Family Medicine; ATTEND Family Medicine
DX: I48.91 Unspecified atrial fibrillation (principal); I50.32 Chronic diastolic (congestive) heart failure; I11.0 Hypertensive heart disease with heart failure; E78.5 Hyperlipidemia, unspecified; M54.32 Sciatica, left side; G89.29 Other chronic pain; G62.9 Polyneuropathy, unspecified; D64.9 Anemia, unspecified; K21.9 Gastro-esophageal reflux disease without esophagitis; Z90.710 Acquired absence of both cervix and uterus; Z85.038 Personal history of other malignant neoplasm of large intestine; Z88.2 Allergy status to sulfonamides; Z91.041 Radiographic dye allergy status; Z79.899 Other long term (current) drug therapy; Z85.42 Personal history of malignant neoplasm of other parts of uterus; Z90.49 Acquired absence of other specified parts of digestive tract; Z96.651 Presence of right artificial knee joint
CPT/HCPCS: 71046; 80048; 80053; 83880; 84439; 84443; 84484; 85025; 93005; A9270; J3490; J7030; 99024; S1016

== ENCOUNTER 2019-07-20 11:14 | Emergency (ER) | payer MEDICARE, OTHER ==
--- NOTE | 2019-07-20 11:31 | ED Physician Documentation ---
General Adult - HISTORIAN Historian: patient - HPI Stated Complaint: weakness, back pain Chief Complaint: Dizziness Onset: other (over 3 months ) Timing: still present Severity: moderate Further Comments: yes (Per her family she has had back pain now for about 6 months. She has little appetitie for food and it all "gags her" she was hosptialized a few weeks ago for similar symptoms and she was discharged and still had the same weakness and dizziness. No rash. She feels she is urinating more than usual. no chest pain. She has an appt with her PCP in the am. She states that she has back pain that is chronic. No new injury. She has pain medication at home for the pain. She states she has Afib) - ROS CONST: recent illness EYES/ENT: denies: sore throat, nasal drainage, nasal congestion CVS/RESP: denies: chest pain, shortness of breath, cough GI/: other (food just doesnt taste good ). denies: vomiting, nausea MS/SKIN/LYMPH: denies: rash NEURO/PSYCH: denies: headache - PAST HX Past History: A-Fib, CHF Surgeries/Procedures: ECHO (2016 per H&P last admission ) Immunizations: UTD Allergies/Adverse Reactions: Allergies Allergy/AdvReac Type Severity Reaction Status Date / Time Iodinated Contrast Media Allergy Intermediate Rash Verified 07/20/19 12:09 Sulfa (Sulfonamide Allergy Rash Verified 07/20/19 12:09 Antibiotics) Home Medications: Ambulatory Orders Medication Instructions Recorded Gabapentin 100 mg PO TID 07/08/19 - SOCIAL HX Smoking History: non-smoker Alcohol Use: none Drug Use: none - FAMILY HX Family History: No - VITAL SIGNS Vital Signs: Vital Signs Temp Pulse Resp BP Pulse Ox 150/68 07/10/19 08:49 - REVIEWED ASSESSMENTS Nursing Assessment Reviewed: Yes Vitals Reviewed: Yes Progress - Progress Progress: 1215: Discussed case with Dr Ricketts and she will see her tomorrow and try outpt for pneumonia - WBC is normal and she is not anemic no vs change DG 1220: discuss the findings and discharge with family - they are most concerned with her not eating much in several days (discussed trying ensure boost protein shakes and small frequent meals) - they have an appt with dr ricketts in the AM they will keep this appt and discuss DG General Adult Physical Exam - PHYSICAL EXAM GENERAL APPEARANCE: no distress EENT: eye inspection normal, pharynx normal, no signs of dehydration NECK: normal inspection RESPIRATORY: no resp distress, chest non-tender, breath sounds normal CVS: heart sounds normal, irregularly irregular rhy ABDOMEN: soft, normal bowel sounds, no distension BACK: normal inspection SKIN: warm/dry, normal color EXTREMITIES: non-tender, normal range of motion, no evidence of injury, no edema NEURO: oriented X3 Discharge Clincal Impression: Atrial fibrillation with rapid ventricular response, Weakness Chronic low back pain Qualifiers: Back pain laterality: left Sciatica presence: with sciatica Sciatica laterality: sciatica of left side Qualified Code(s): M54.42 - Lumbago with sciatica, left side Referrals: Janie Ricketts MD [Primary Care Provider] - 2 Days Comments: 1. Levaquin 500mg and Azithromycin Zpack- prescribed after discussion with Dr Ricketts for out pt treatment of pneumonia 2. INCREASE your intake 3. Follow up with Dr Ricketts tomorrow as scheduled 4. Return to ER for any increased concerns Condition: Stable Disposition: 01 HOME, SELF-CARE Decision to Admit: NO Date of Decison to Admit: 07/20/19 Decision Time: 12:28
[2019-07-20 11:48] LABS: BASOPHILS % 0.3 % (0.0-1.5); NEUTROPHILS # 5.9 # k/uL (1.4-7.7)
[2019-07-20 11:59] LABS: eGFR (Non-African) 43
[2019-07-20] MEDS: 0.9 % SODIUM CHLORIDE 1,000 ML IV ONE (12:02)
--- NOTE | 2019-07-20 12:05 | Diagnostic Imaging Report ---
PATIENT MR#: [id number] PATIENT PATIENT NAME: BHAVANA REILLY DATE OF : 1930 REFERRING PHYSICIAN: Philomena Osorio EXAM DATE: 07/20/2019 ACCESSION NUMBER: [id number] EXAM DESCRIPTION: CHEST 1VIEW Portable chest History: Weakness Findings: Minimal subsegmental infiltrate or atelectasis is present at the right lung base. The lef t lung is clear. Aortic atherosclerosis is observed. Heart size is normal. Read by: Dr. Daniel Daniels Transcribed by: Transcribed Date: Electronically signed by: Dr. Daniel Daniels Date signed: 07/20/2019 12:04:42 PM
[2019-07-20 13:20] VITALS: BP 140/51
[2019-07-21 07:41] LABS: COLOR,URINE YELLOW (YELLOW)
[2019-07-21 07:42] LABS: APPEARANCE,URINE CLEAR (CLEAR); OCCULT BLOOD,URINE NEGATIVE (NEGATIVE); PH URINE 5.5 (5.0 - 8.0); UROBILINOGEN URINE 0.2 Eu (0.2-1.0)
== END 2019-07-20 13:11 | disposition home or self-care (01) ==
LOC: ED 11:14
DX: M54.42 Lumbago with sciatica, left side (principal)
CPT/HCPCS: 36415; 71045; 80053; 81002; 85025; 93005; 96360; 99282; 99284; J7030; S1016